=== PATIENT | female | born 1995 | race Caucasian/White ===

== ENCOUNTER 2020-10-14 20:00 | Emergency (ER) | payer MEDICAID ==
[~2020-10-14] VITALS: Ht 157.5 cm; Wt 60.8 kg
--- NOTE | 2020-10-14 20:40 | NUR ---
bibself c/o right wrist pain s/p fall on step stool yesterday. pt aox 4 rr even and unlabored. no sob noted. no nvd at this time. no acute distress noted. pt waiting for md hussein.
--- NOTE | 2020-10-14 20:50 | NUR ---
PT TO RADIOLOGY
[2020-10-14] MEDS ORDERED: IBUP-1955 PO (21:34)
--- NOTE | 2020-10-14 21:47 | NUR ---
pt cleared for discharge per edwin wade. pt received discharge instructions. pt verbalized understanding. pt ambulatory with steady gait.
[2020-10-14 21:48] VITALS: BP 118/78
== END 2020-10-14 21:48 | disposition home or self-care (01) ==
LOC: ER 20:14
DX: M25.531 Pain in right wrist (principal); Z98.890 Other specified postprocedural states; W11.XXXA Fall on and from ladder, initial encounter; Y93.89 Activity, other specified; Y92.098 Other place in other non-institutional residence as the place of occurrence of the external cause; Y99.8 Other external cause status
CPT/HCPCS: 73110; 84703-TC